=== PATIENT | female | born 2000 | race Caucasian/White ===

== ENCOUNTER → 2025-01-28 16:13 | Outpatient (REF) | payer BC, OTHER, SELFPAY | LOC: RAD 16:13 | PROVIDERS: ATTENDING PHYSICIAN Student in an Organized Health Care Education/Training Program; FAMILY PHYSICIAN Emergency Medicine | DX: M25.50 Pain in unspecified joint (principal); M25.551 Pain in right hip; M25.552 Pain in left hip; M25.561 Pain in right knee; M25.562 Pain in left knee; M79.641 Pain in right hand; M79.642 Pain in left hand | CPT/HCPCS: 73120; 73523; 73565 ==